=== PATIENT | male | born 1980 | race Caucasian/White ===

== ENCOUNTER 2024-10-23 16:25 | Emergency (ER) | payer MEDICAID ==
[~2024-10-23] VITALS: Ht 175.3 cm; Wt 114.0 kg
[2024-10-23 16:32] VITALS: O2SAT 98
[2024-10-23] MEDS ORDERED: ONDA-239 PO (21:32)
[2024-10-23 22:35] VITALS: BP 154/90; PULSE 74; RESP 19; TEMP 36.9; O2SAT 99
== END 2024-10-23 22:35 | disposition home or self-care (01) ==
LOC: ER 16:25
DX: T40.411A Poisoning by fentanyl or fentanyl analogs, accidental (unintentional), initial encounter (principal); Y92.9 Unspecified place or not applicable
CPT/HCPCS: 99283